=== PATIENT | male | born 1945 | race Caucasian/White ===

== ENCOUNTER 2019-02-19 10:40 | Day surgery (SDC) | payer MEDICARE, OTHER, SELFPAY ==
--- NOTE | 2019-02-14 11:32 | EKG12_ITS ---
Test Reason : PREOP Blood Pressure : / mmHG Vent. Rate : 071 BPM Atrial Rate : 071 BPM P-R Int : 172 ms QRS Dur : 096 ms QT Int : 404 ms P-R-T Axes : 060 063 034 degrees QTc Int : 439 ms Sinus rhythm with sinus arrhythmia with occasional Premature ventricular complexes Possible Left atrial enlargement Borderline ECG Confirmed by HUGH PARADA, SHAUNA ([id number]), graphics editor KALIN RICHARDSON ([id number]) on 02/19/2019 2:42:53 PM Referred By: Jermaine Mccann Confirmed By:SHAUNA REESE MD
[2019-02-14 12:49] LABS: Hematocrit 45.1 % (40-54); Hemoglobin 14.4 g/dL (13.0-16.5); Mean Corp Hgb Conc 31.9 g/dL (32-36); Mean Corpuscular Hgb 32.5 pg (27.0-32.0); Mean Corpuscular Volume 101.8 fL (80-94); Mean Platelet Vol. 9.8 fl (6.2-12.0); Platelet Count 172 K/mm3 (150-450); RBC Distribution Width CV 13.8 % (11.6-14.6); RBC Distribution Width SD 51.8 fl (35.1-43.9); Red Blood Count 4.43 M/mm3 (4.6-6.2); White Blood Count 5.9 K/mm3 (4.4-11.0)
[2019-02-14 13:24] LABS: Anion Gap 7 (5-15); BUN 10 mg/dL (7-18); BUN/Creat Ratio 14.4 RATIO (10-20); Calcium,Total 9.3 mg/dL (8.5-10.1); Chloride 107 mmol/L (98-107); Creatinine, Serum 0.69 mg/dL (0.70-1.30); EST Glomerular Filtration Rate 118 mL/min (>60); Est Glom Filt Rate - Afr Amer 143 mL/min (>60); Glucose 82 mg/dL (74-106); Sodium Level 143 mmol/L (136-145)
[2019-02-19] VITALS (7 sets, daily range): BP systolic 154–188; BP diastolic 89–109; PULSE 70–91; RESP 16–20; TEMP 36.3–36.7; O2SAT 92–98; BMI 25.6
[2019-02-19] MEDS: Lactated Ringers 1,000 ML 100 ML IV (11:55)
--- NOTE | 2019-02-19 12:15 | TOBX_PTH ---
PATIENT: LIZANDRO [place]VEN [place] [facility] [id number] AGE/SX: 73/M ROOM: RE02/19/[address]: Dr. Miguel Mccann MD : 1945 BED: DIS: 02/19/2019 SPEC #: [id number] RECD: 02/19/19 15:03 STATUS: MARIANA CHAYA #: [id number] YOLETTE: 02/19/19 12:[address]: Miguel Mccann DEPT: SURGICAL PATHOLOGY RECD BY: Brandon Sommer ENTERED: 02/20/19 09:12 SP TYPE: TONGUE BX OTHR DR: Dr. Heraclio Lazcano MD Tissues: Tongue, NOS Procedures: Surgery Specimen Level IV HEADER OPERATION: Diagnostic laryngoscopy with biopsy PRE-OP DIAGNOSIS: Evaluation of acute sore throat TISSUE SUBMITTED: Right tongue base MICROSCOPIC DIAGNOSIS Right tongue base, biopsy: Invasive squamous cell carcinoma, non-keratinizing type (nasopharyngeal carcinoma). See comment. SJ:vidal 02/22/19 COMMENT The tumor show marked lymphocytic infiltrates. Immunohistochemistry ([id number]) supports the above diagnosis. The tumor is positive for surrogate marker for HPV (p16). Clinical correlation and appropriate follow up are necessary. Case has been reviewed in consultation with Dr. Taveras who concurs with the above diagnosis. IDC:AM MICROSCOPIC DESCRIPTION Slides are reviewed. GROSS DESCRIPTION Received in fixative is one container labeled with the patient's name and designated right tongue base. The specimen consists of multiple pieces of chatman mucosal tissue that in aggregate measure 2 x 1.5 x 0.3 cm. The entire specimen is submitted in one cassette. / RUSTY:vidal 02/20/19 TC:0 CPT: 56448
--- NOTE | 2019-02-19 12:15 | IMM_PTH ---
PATIENT: LIZANDRO [place]RAVEN [place] [facility] [place][id number] AGE/SX: 73/M ROOM: RE02/19/[address]: Dr. Miguel Mccann MD : 1945 BED: DIS: 02/19/2019 SPEC #: [id number] RECD: 02/21/19 08:50 STATUS: MARIANA REQ #: [id number] YOLETTE: 02/19/19 12:[address]: Miguel Mccann DEPT: IMMUNOHISTOCHEMISTRY RECD BY: Adriana Mckeon ENTERED: 02/21/19 08:50 SP TYPE: IMMUNO OTHR DR: Dr. Heraclio Lazcano MD Tissues: Tongue, NOS Procedures: p16 (initial) BCL-2 (add) CD20 (add) CD3 (add) CD45 (add) CD5 (add) CD79A (add) CK5-6 (add) CK8 (add) KI-67 (add) Pankeratin (add) P40 (add) PHYSICIAN & [address] [address] SPECIMEN INFORMATION: Tissue Source: Right tongue base Clinical Info: Acute sore throat Specimen Number: [id number] CPT code: 84209, 37981 x11 METHODOLOGY: Deparaffinized sections of prefer/formalin-fixed tissue or PAP/DQ stained slides are incubated with monoclonal/polyclonal antibodies/oligonucleotide probes. Localization is made via biotin free immunoperoxidase method. Appropriate controls are performed and reacted as expected. Results on target cell population are indicated in the following table: RESULTS: ANTIBODY / CLONE RESULT P16 (E6H4) positive, block staining Ki-67 (30-9) positive, high AE1-3 (AE1/AE3/PCK26) positive, weak CK8 (24hvrzQ29) positive, weak CD3 (PS1) negative * CD5 (SP10) negative * CD20 (L26) negative * CD45 (RP2/18) negative * CD79a (11E3) negative * BCL-2 (bcl-2/100/D5) positive CK5-6 (D5 & 1684) positive P40 (BC28) positive *?Positive in background lymphocytes These tests were developed and their performance characteristics determined by [facility]. They may not have been cleared or approved by the U.S. Food and Drug Administration. The FDA has determined that such clearance or approval is not necessary. The above immunohistochemical/dualISH markers are ordered and reviewed by the Pathologist. INTERPRETATION: Right tongue base, biopsy: Invasive squamous cell carcinoma, non-keratinizing type (nasopharyngeal carcinoma). SJ:vidal 02/21/19 Case has been reviewed in consultation with Dr. Taveras who concurs with the above diagnosis. IDC:AM
--- NOTE | 2019-02-19 14:06 | PCM.DC ---
You will use the following diet at home:: No restrictions Discharge Activity: Return to Normal Activity Call your doctor if your incision/area has: Increased Pain/ Swelling Allergies/Adverse Reactions: Allergies iodine Allergy (Verified 02/18/19 09:13) Hives INTERNAL ONLY Medications to take at Discharge Ascorbic Acid [Vitamin C] 2,000 mg PO DAILY 02/18/19 Aspirin E.C. [Ecotrin] 81 mg PO DAILY@0800 02/18/19 Atorvastatin Calcium [Lipitor] 10 mg PO QHS 02/18/19 Cinnamon Bark [Cinnamon] 500 mg PO DAILY 02/18/19 Fluticasone 0.05% [Flonase Nasal [place]] 1 spray NASAL PRN PRN 02/18/19 Latanoprost 0.005% [Xalatan Opthalmic] 1 drp EACH EYE QHS 02/18/19 Losartan Potassium [Cozaar] 25 mg PO DAILY 02/18/19 Meloxicam [Mobic] 15 mg PO PRN PRN 02/18/19 Nystatin/Triamcin Oint [Mycolog] 1 applic TOPICAL PRN PRN 02/18/19 Vitamin A 8,000 unit PO DAILY 02/18/19 Vitamin B Complex 1 ea PO DAILY 02/18/19 Primary Care Physician: Heraclio Lazcano MD [Primary Care Provider] - Test Results: Test results from this visit will be discussed in further detail at your follow-up appointment, if applicable. Please Follow Up With: Jermaine Mccann MD When: 2 weeks
[2019-02-19] MEDS: Oxymetazoline 0.05% 1 SPRAY SPRAY.BTL 15 SPRAY (14:17)
--- NOTE | 2019-02-19 14:29 | OP.PCM_ITS ---
Problem List (1) Oropharyngeal mass Status: Chronic Report of Operation Date of Procedure: 02/19/19 Pre-Operative Diagnosis: right oropharyngeal mass Post-Operative Diagnosis: right oropharyngeal mass Surgery/Procedure Performed:: diagnostic laryngoscopy with biopsy and use of operative telescope Type of Anesthesia:: General Description of Procedure: on the day of the procedure, after appropriate informed consent was obtained, the patient was brought to the operating room and placed in supine position on the operating table. he was placed under general endotracheal anesthesia by the anesthesiologist. the endotracheal tube was secured, the eyes were taped. the table was rotated 90 degrees toward the surgeon. a tooth guard was placed. a diane laryngoscope was used to visualize the tongue base. there was an ill- defined area of the right tongue base that did not involve the hypopharynx or epiglottis. this was roughly 1.5 cm but was poorly visualized and friable. multiple biopsies were taken with a cupped biting forceps. hemostasis was achieved with oxymetazoline-soaked pledgets. the table was rotated back and the patient was extubated uneventfully. he was transferred to the PACU in stable condition.
[2019-02-19] MEDS: Acetaminophen/Codeine #3 Tablet 1 TABLET PO (16:11)
== END 2019-02-19 16:39 | disposition home or self-care (01) ==
LOC: SDC 10:41 → AC 10:45
PROVIDERS: Family Provider Internal Medicine; PCP Internal Medicine; Referring Provider Otolaryngology; Visit Provider Otolaryngology
PROC: 0CJS8ZZ Inspection of Larynx, Via Natural or Artificial Opening Endoscopic (ICD-10-PCS; CPT 31575; principal; 2019-02-19 12:10)
DX: C01 Malignant neoplasm of base of tongue (principal); Z87.891 Personal history of nicotine dependence; I10 Essential (primary) hypertension
CPT/HCPCS: 31536; 36415; 80048; 85027; 88305; 88341; 88342; 93005; J7120; J2405

== ENCOUNTER → 2019-10-07 17:43 | Outpatient (CLI) | payer MEDICARE, OTHER, SELFPAY ==
[2019-02-19 11:33] VITALS: BMI 25.6
[2019-10-07 18:12] LABS: Absolute Lymphocyte Count 0.68 X10^3/uL (0.83-4.51); Absolute Neutrophil Count 4.9 X10^3/uL (2.0-7.7); Basophil# 0.03 X10^3/uL; Basophil% 0.5 % (0-1); Eosinophil# 0.23 X10^3/uL; Eosinophils% 3.5 % (0-5); Hematocrit 33.4 % (40-54); Hemoglobin 10.7 g/dL (13.0-16.5); Lymphocyte # 0.68 X10^3/ul (4.0); Lymphocyte % 10.4 % (19-41); Mean Corpuscular Hgb 32.4 pg (27.0-32.0); Mean Corpuscular Volume 101.2 fL (80-94); Mean Platelet Vol. 9.4 fl (6.2-12.0); Monocyte# 0.64 X10^3/uL; Monocyte% 9.8 % (0-10); NRBC Flagged by Analyzer 0 % (0-5); Neutrophil # 4.91 X10^3/uL (2.7-7.7); Neutrophil % 75.3 % (47-70); Platelet Count 248 K/mm3 (150-450); RBC Distribution Width CV 13.2 % (11.6-14.6); RBC Distribution Width SD 48.4 fl (35.1-43.9); White Blood Count 6.5 K/mm3 (4.4-11.0)
[2019-10-07 18:48] LABS: Creatinine, Serum 0.44 mg/dL (0.70-1.30); EST Glomerular Filtration Rate 200 mL/min (>60); Est Glom Filt Rate - Afr Amer 242 mL/min (>60)
== END ==
PROVIDERS: PCP Internal Medicine; Referring Provider Internal Medicine; Visit Provider Internal Medicine
DX: C02.9 Malignant neoplasm of tongue, unspecified (principal)
CPT/HCPCS: 82565; 85025

== ENCOUNTER 2019-10-25 13:21 | Emergency (ER) | payer MEDICARE, OTHER, SELFPAY ==
[2019-02-19 11:33] VITALS: BMI 25.6
[2019-10-25 13:22] VITALS: BP 135/69; PULSE 75; RESP 16; TEMP 36.9; O2SAT 93
[2019-10-25 14:31] LABS: Absolute Lymphocyte Count 0.54 X10^3/uL (0.83-4.51); Absolute Neutrophil Count 8.9 X10^3/uL (2.0-7.7); Basophil# 0.02 X10^3/uL; Basophil% 0.2 % (0-1); Eosinophil# 0.13 X10^3/uL; Eosinophils% 1.2 % (0-5); Hematocrit 38.1 % (40-54); Lymphocyte # 0.54 X10^3/ul (4.0); Mean Corp Hgb Conc 31.5 g/dL (32-36); Mean Corpuscular Hgb 31.9 pg (27.0-32.0); Mean Corpuscular Volume 101.3 fL (80-94); Mean Platelet Vol. 9.1 fl (6.2-12.0); Monocyte# 1.17 X10^3/uL; Monocyte% 10.8 % (0-10); NRBC Flagged by Analyzer 0 % (0-5); Neutrophil # 8.92 X10^3/uL (2.7-7.7); Neutrophil % 82.3 % (47-70); POSITIVE DIFFERENTIAL YES; Platelet Count 183 K/mm3 (150-450); Red Blood Count 3.76 M/mm3 (4.6-6.2); White Blood Count 10.8 K/mm3 (4.4-11.0)
[2019-10-25 14:36] LABS: Differential Indicated SCAN CRITERIA MET
[2019-10-25 14:46] LABS: AST(SGOT) 16 U/L (15-37); Alanine Aminotransfer ALT/SGPT 19 U/L (16-61); Albumin, Serum 2.8 g/dL (3.2-5.0); Alkaline Phosphatase 65 U/L (45-117); Anion Gap 3 (5-15); BUN 16 mg/dL (7-18); Calcium,Total 9.5 mg/dL (8.5-10.1); Chloride 99 mmol/L (98-107); Creatinine, Serum 0.47 mg/dL (0.70-1.30); EST Glomerular Filtration Rate 185 mL/min (>60); Est Glom Filt Rate - Afr Amer 224 mL/min (>60); Estimated Creatinine Clearance 63.83 ml/min; Globulin 4.9 g/dL (2.2-4.2); Glucose 94 mg/dL (74-106); Potassium 3.9 mmol/L (3.5-5.1); Protein, Total 7.7 g/dL (6.4-8.2); Sodium Level 136 mmol/L (136-145)
[2019-10-25 14:55] LABS: Macrocytosis 1+; Platelet Estimate ADEQUATE (ADEQ); Red Cell Morphology N CHROM NORMAL (NORM C&C)
[2019-10-25] MEDS: MethylPREDNISolone 125 MG/2 ML Vial IV (15:14)
[2019-10-25] MEDS: DiphenhydrAMINE 50 MG/ML Syringe 25 MG IV (15:15)
--- NOTE | 2019-10-25 16:10 | RAD_ITS ---
We are attempting to reach an attending provider to discuss findings. An addendum with communication details will be sent when the communication is complete. STUDY: X-RAY - ABDOMEN/PELVIS REASON FOR EXAM: Male, 74 years old. PEG TUBE PLACED ON MONDAY. HAVING A LOT OF YELLOW DRAINAGE WITH INCREASED PAIN AROUND SITE. injected 50mL of gastrografin/water mixture. TECHNIQUE: KUB COMPARISON: None. FINDINGS: Examination is limited as a study prior to the contrast injection was not performed. Normal visualized lung bases. Nonspecific ileus pattern is seen.. PEG tube is noted projecting over the gastric body. There is contrast noted within the stomach. However there also appears to be a small amount of extravasated contrast within the upper abdomen., The visualized liver, spleen and kidneys are grossly normal in size and morphology. There are surgical clips seen within the lower abdomen in the midline Normal soft tissue structures. Normal visualized osseous structures. RAD/Abdomen Single View IMPRESSION: PEG tube placement within the gastric body demonstrating contrast within the stomach however there still appears to be small amount of extravasated contrast. Clinical correlation is recommended Electronically Signed: Prabhjot Cuellar MD at 16:37 EDT , Service support ,
--- NOTE | 2019-10-25 16:32 | ED.VISSUMM ---
- ER Visit Summary Date of Service: 10/25/19 Chief Complaint: [Concern for infection to PEG tube site] History of Present Illness: The patient is a 74 M [presents the emergency department with his daughter who states that he has had drainage from his PEG tube site today. Patient had a PEG tube placed 3 days ago at [facility]. 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 They have been using formula through the PEG tube and they have not had any issues using the tube. He has had no fevers. He denies recent illness otherwise.] Physical Examination: [HEENT-PERRLA, EOMI. Cranial nerves II through XII grossly intact. TMs clear. Mucous membranes moist. No adenopathy. Cardiovascular-regular rate and rhythm without murmur or ectopy Lungs-clear to auscultation, chest wall stable without crepitus or subcu emphysema Abdomen-normoactive bowel sounds, soft, nontender, no rebound or rigidity, no peritoneal signs. Patient has a feeding tube noted in the left upper abdomen with small amount of thin yellowish drainage noted on the dressing. No significant erythema or cellulitis noted. The color of the drainage appears the same as the color of the formula in the PEG tube. Extremities-intact ?4, normal range of motion, normal pulses, atraumatic] Test Results: [CBC with differential obtained showed a normal white count of 10.8, hemoglobin 12, hematocrit 38, plates 183. Chemistries unremarkable. LFTs unremarkable. Patient had a Gastrografin study obtained to evaluate location of the tube which appeared to be in good position in the stomach.] Emergency Department Course and Treatment: [] Treatment Plan: [Case was discussed with patient's surgeon at [facility] who has low suspicion for infection based on description of the wound. I to do not feel this is an infectious process but rather that it may be the gastric content coming up around the tube. I reassured the patient's that did not feel this needed any further intervention and there able to follow-up with her surgeon if they have any further concerns next week. Advised to return if fever, vomiting, or condition should worsen anyway.] Disposition: [Discharged home in stable condition] Impression: [Wound check status post PEG tube placement-no infection] This note was generated with Dragon dictation software. It may contain incorrect words, spelling, and punctuation that were not noted in review of the chart prior to signing ED Disposition - Plan for ED Patient: Referrals: Heraclio Lazcano MD [Primary Care Provider] -
--- NOTE | 2019-10-25 16:57 | NURSING ---
NO LW OR POA
--- NOTE | 2019-10-25 17:15 | NURSING ---
DR DIA, SURGEON, FOR DR SCHWARZ
--- NOTE | 2019-10-25 17:40 | NURSING ---
PATIENT ACCEPTED, WAITING ON A ROOM
[2019-10-25 17:50] VITALS: BP 172/94; PULSE 77; RESP 18; O2SAT 96
--- NOTE | 2019-10-25 18:33 | ED.RN ---
pt's daughter states that she would like called when there is a room assignment. her name is Prachi Valdez and her number is [phone]
[2019-10-25] MEDS: Morphine 4 MG/ML Syringe IV (19:14)
[2019-10-25 19:37] VITALS: BP 148/68; PULSE 68; RESP 14; TEMP 36.9; O2SAT 94
[2019-10-25 21:17] VITALS: BP 148/68; PULSE 68; RESP 14; TEMP 36.9; O2SAT 94
== END 2019-10-25 21:19 | disposition short-term general hospital (02) ==
LOC: ED 14:30
PROVIDERS: Emergency Provider Emergency Medicine; PCP Internal Medicine
DX: Z43.1 Encounter for attention to gastrostomy (principal); C02.9 Malignant neoplasm of tongue, unspecified; E78.00 Pure hypercholesterolemia, unspecified
CPT/HCPCS: 74018; 80048; 80076; 85025; 99285; J7050; A4216; J2930